=== PATIENT | female | born 1935 | race Caucasian/White ===

== ENCOUNTER 2021-12-19 17:20 | Emergency (ER) | payer OTHER, MEDICARE, BC ==
[2021-12-19] MEDS ORDERED: HYDROmorphone 1 MG/ML Syringe IM ONE (18:08)
[2021-12-19] MEDS ORDERED: Sodium Chloride 0.9% 10 ML Syringe FLUSH PRN (19:07)
== END 2021-12-19 19:13 ==
LOC: KA.ED 17:20
DX: S53.104A Unspecified dislocation of right ulnohumeral joint, initial encounter (principal); Z87.891 Personal history of nicotine dependence; W18.30XA Fall on same level, unspecified, initial encounter
CPT/HCPCS: 73030-RT; 73070-RT; 73100-RT; 96372; 99284; J1170